=== PATIENT | female | born 1990 | race African-American/Black ===

== ENCOUNTER 2018-10-10 19:31 | Emergency (ER) | payer OTHER ==
[~2018-10-10] VITALS: Ht 182.9 cm; Wt 74.4 kg
[2018-10-10 19:55] VITALS: BP 111/74
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
[2018-10-10] MEDS ORDERED: Acetaminophen 500mg (ES) tab ORAL ONE (20:15)
[2018-10-10 20:27] LABS: APPEARANCE,URINE CLEAR; BILIRUBIN, URINE NEGATIVE (NEGATIVE); GLUCOSE, URINE (UA) NEGATIVE (NEGATIVE); KETONES,URINE 1+ (NEGATIVE); LEUKOCYTE ESTERASE ,URINE 1+ (NEGATIVE); NITRITE,URINE NEGATIVE (NEGATIVE); PH,URINE 7 (4.5-8.0); PROTEIN,URINE 2+ (NEGATIVE); UROBILINOGEN,URINE NORMAL MG/DL (0.0-1.0)
[2018-10-10 20:30] LABS: COLOR,URINE YELLOW
--- NOTE | 2018-10-10 20:42 | NUR ---
ER Nurse Note: All orders completed per ERMD orders. Pt calm, cooperative, sitting in bed. Awaiting results from radiology. Will continue to monitor.
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
[2018-10-10] MEDS ORDERED: ROBAXIN-750750 MG PO (21:16)
[2018-10-10] MEDS ORDERED: TYLENOL EXTRA500 MG ORAL (21:16)
[2018-10-10] MEDS ORDERED: LIDODERM700 M1 TOPIC (21:16)
[2018-10-10 21:22] VITALS: BP 111/74
--- NOTE | 2018-10-10 21:22 | NUR ---
ER Nurse Note: Pt seen, treated, medically cleared for discharge by ERMD. Discharge instuctions and prescriptions given with repeat verbalization by pt. Emphasized to follow up with primay care provider; take whole course of medication. Explained each medication. All orders completed per ERMD orders. Pt a&ox4, VSS, no signs of distress. ID band removed. All questions answered per pt's questions. Pt left with all belongings, left with own transportation.
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
== END 2018-10-10 21:22 | disposition home or self-care (01) ==
LOC: EMR 20:05
DX: S39.012A Strain of muscle, fascia and tendon of lower back, initial encounter (principal); S16.1XXA Strain of muscle, fascia and tendon at neck level, initial encounter; V43.62XA Car passenger injured in collision with other type car in traffic accident, initial encounter; Y92.410 Unspecified street and highway as the place of occurrence of the external cause; Z88.0 Allergy status to penicillin
CPT/HCPCS: 72020; 72125; 81001; 81025; 99284